=== PATIENT | female | born 1960 | race American Indian/Alaskan Native ===

== ENCOUNTER 2018-09-22 14:09 | Emergency (ER) | payer SELFPAY ==
[2018-09-22] MEDS ORDERED: DECADRON IM ONE (16:44)
--- NOTE | 2018-09-22 16:44 | Emergency Department Report ---
ED Back Pain/Injury HPI - General Chief Complaint: Back Pain/Injury Stated Complaint: HURT LOWER BACK Time Seen by Provider: 09/22/18 16:41 Source: patient Limitations: No Limitations - History of Present Illness Initial Comments: Patient is a 58-year-old -[place] female who comes to the ER after hurting her back while lifting a heavy object. She states that she did not use her leg she bent over and her lower back and twisted as she turned. She has left paraspinal spasm. She is ambulatory but with pain. She has no signs or symptoms of cauda equina. - Related Data Previous Rx's Medication Instructions Recorded Last Taken Type Cyclobenzaprine [Flexeril] 10 mg PO TID PRN #10 tablet 09/22/18 Unknown Rx hydroCHLOROthiazide [HCTZ] 25 mg PO QDAY #30 tablet 09/22/18 Unknown Rx predniSONE [Deltasone] 20 mg PO DAILY #5 tablet 09/22/18 Unknown Rx traMADol [Ultram] 50 mg PO Q6HR PRN #10 tablet 09/22/18 Unknown Rx Allergies Allergy/AdvReac Type Severity Reaction Status Date / Time No Known Allergies Allergy Verified 08/06/15 00:49 ED Review of Systems ROS: Stated complaint: HURT LOWER BACK Other details as noted in HPI Comment: All other systems reviewed and negative Constitutional: denies: chills ENT: denies: throat pain Respiratory: denies: cough Cardiovascular: denies: dyspnea on exertion Endocrine: denies: flushing Genitourinary: denies: urgency Musculoskeletal: as per HPI, back pain Skin: denies: rash Neurological: denies: weakness Psychiatric: denies: depression Hematological/Lymphatic: denies: easy bleeding ED Past Medical Hx - Past Medical History Previous Medical History?: Yes Hx Hypertension: Yes - Surgical History Past Surgical History?: No - Social History Smoking Status: Current Every Day Smoker Substance Use Type: None - Medications Home Medications: Home Medications Medication Instructions Recorded Confirmed Last Taken Type Cyclobenzaprine [Flexeril] 10 mg PO TID PRN #10 tablet 09/22/18 Unknown Rx hydroCHLOROthiazide [HCTZ] 25 mg PO QDAY #30 tablet 09/22/18 Unknown Rx predniSONE [Deltasone] 20 mg PO DAILY #5 tablet 09/22/18 Unknown Rx traMADol [Ultram] 50 mg PO Q6HR PRN #10 tablet 09/22/18 Unknown Rx ED Physical Exam - General Limitations: No Limitations General appearance: alert - Head Head exam: Present: atraumatic - Eye Eye exam: Present: normal appearance - ENT ENT exam: Present: normal exam - Neck Neck exam: Present: normal inspection - Respiratory Respiratory exam: Present: normal lung sounds bilaterally - Cardiovascular Cardiovascular Exam: Present: regular rate - GI/Abdominal GI/Abdominal exam: Present: soft - Rectal Rectal exam: Present: deferred - Extremities Exam Extremities exam: Present: normal inspection, full ROM - Back Exam Back exam: Present: full ROM, muscle spasm (ordered with pain left paraspinal). Absent: CVA tenderness (R), CVA tenderness (L), paraspinal tenderness, vertebral tenderness - Neurological Exam Neurological exam: Present: alert, oriented X3 - Psychiatric Psychiatric exam: Present: normal affect, normal mood - Skin Skin exam: Present: warm, dry, intact ED Course Vital Signs 09/22/18 09/22/18 14:18 17:10 Temperature 98.6 F Pulse Rate 92 H 101 H Respiratory 20 Rate Blood Pressure 156/106 126/83 O2 Sat by Pulse 90 Oximetry ED Medical Decision Making - Medical Decision Making Patient did not fall she has no trauma that would result in a fracture of her vertebrae. She has no previous back injury or history that would make me suspicious for fracture or dislocation. She does not have severe osteoporosis that would lend itself to a pathological fracture. She is neurovascularly intact. She was medicated in the emergency room for pain and discharged with additional medications to alleviate her spasm. She's been given follow-up with orthopedics. Patient states that she ran out of her blood pressure medication months ago and quit taking it. She was taking lisinopril one point but it made her cough. Given her elevated blood pressure I sent her home with hydrochlorothiazide and PCP referral. She was also medicated with clonidine here in the ER. - Differential Diagnosis muscle injury Critical care attestation.: If time is entered above; I have spent that time in minutes in the direct care of this critically ill patient, excluding procedure time. ED Disposition Clinical Impression: Back spasm, HTN (hypertension), Medical non-compliance Disposition: TO HOME OR SELFCARE Is pt being admited?: No Does the pt Need Aspirin: No Condition: Stable Instructions: Hypertension (ED), Muscle Spasm (ED) Additional Instructions: WARM COMPRESSES MEDS ORDERED MOTRIN OR TYLENOL FOR MILD PAIN [employer] FOLLOW UP PCP IF PERSISTS LOW SALT DIET ACTIVITY TOLERATED Prescriptions: Cyclobenzaprine [Flexeril] 10 mg PO TID PRN #10 tablet PRN Reason: Muscle Spasm hydroCHLOROthiazide [HCTZ] 25 mg PO QDAY #30 tablet predniSONE [Deltasone] 20 mg PO DAILY #5 tablet traMADol [Ultram] 50 mg PO Q6HR PRN #10 tablet PRN Reason: Pain Referrals: PRIMARY CAREMD [Primary Care Provider] - 3-5 Days ANN BISHOP MD [Referring] - 3-5 Days Forms: Work/School Release Form(ED) Time of Disposition: 16:45
[2018-09-22] MEDS ORDERED: IBUPROFEN PO ONE (16:45)
[2018-09-22] MEDS ORDERED: CATAPRES PO ONE (16:47)
[2018-09-22 17:10] VITALS: BP 126/83
== END 2018-09-22 17:40 | disposition home or self-care (01) ==
LOC: ED 14:09
DX: M62.830 Muscle spasm of back (principal); I10 Essential (primary) hypertension; F17.200 Nicotine dependence, unspecified, uncomplicated
CPT/HCPCS: 96372; 99282; J1100

== ENCOUNTER 2021-12-25 22:30 | Emergency (ER) | payer SELFPAY ==
[2021-12-25] MEDS ORDERED: LIDOCAINE 2%/EPINEPHRINE 1:100,000 VIAL (20 ML) INFILTRATI ONE (22:43)
[2021-12-25] MEDS ORDERED: OXYMETAZOLINE 0.05% NASAL SPRAY NS ONE (22:43)
--- NOTE | 2021-12-25 22:43 | Emergency Department Report ---
ED General Adult HPI - General Chief complaint: Nosebleed Stated complaint: NOSE BLEED Time Seen by Provider: 12/25/21 22:43 Source: patient, EMS ( EMS documentation not available at time of chart dictation ), RN notes reviewed, old records reviewed Mode of arrival: Ambulatory Limitations: No Limitations - History of Present Illness Initial comments: This patient is a 61-year-old female who is a chronic tobacco user, who presents to the ER today with a complaint of painless nasal bleeding. It started earlier on today. This is happened to her in the past. She denies trauma, nasal picking, cocaine use. She does not use systemic anticoagulation. She endorses no additional injuries or complaints. Her symptoms were resolved in the emergency room with administration of Afrin, direct digital pressure with a tongue depressor device. -: Sudden Consistency: constant, now resolved Improves with: other (As per history of present illness) Associated Symptoms: denies other symptoms - Related Data Previous Rx's Medication Instructions Recorded Last Taken Type hydroCHLOROthiazide [HCTZ] 25 mg PO QDAY #30 tablet 09/22/18 Unknown Rx predniSONE [Deltasone] 20 mg PO DAILY #5 tablet 09/22/18 Unknown Rx Fluticasone [Flonase] 1 spray NS QDAY #1 bottle 12/26/21 Unknown Rx Nicotine Polacrilex [Nicotine Gum] 4 mg BC PRN #1 pack 12/26/21 Unknown Rx Allergies Allergy/AdvReac Type Severity Reaction Status Date / Time aspirin AdvReac Unknown Verified 12/25/21 22:54 ED Review of Systems ROS: Stated complaint: NOSE BLEED Other details as noted in HPI Constitutional: denies: fever Eyes: denies: vision change ENT: epistaxis, congestion Respiratory: denies: cough Cardiovascular: denies: chest pain Gastrointestinal: denies: abdominal pain, melena, hematochezia Hematological/Lymphatic: denies: easy bleeding ED Past Medical Hx - Past Medical History Hx Hypertension: Yes - Social History Smoking Status: Current Every Day Smoker Substance Use Type: None - Medications Home Medications: Home Medications Medication Instructions Recorded Confirmed Last Taken Type hydroCHLOROthiazide [HCTZ] 25 mg PO QDAY #30 tablet 09/22/18 Unknown Rx predniSONE [Deltasone] 20 mg PO DAILY #5 tablet 09/22/18 Unknown Rx Fluticasone [Flonase] 1 spray NS QDAY #1 bottle 12/26/21 Unknown Rx Nicotine Polacrilex [Nicotine Gum] 4 mg BC PRN #1 pack 12/26/21 Unknown Rx ED Physical Exam - General Limitations: No Limitations General appearance: alert, anxious - Head Head exam: Present: atraumatic, normocephalic - Eye Eye exam: Present: normal appearance, EOMI. Absent: nystagmus - ENT ENT exam: Present: normal exam, normal orophraynx, mucous membranes moist, normal external ear exam, other (There is dried blood noted in the right nostril. There is no active bleeding. There is no nasal septal hematoma.) - Neck Neck exam: Present: normal inspection, full ROM. Absent: tenderness, meningismus - Respiratory Respiratory exam: Present: normal lung sounds bilaterally. Absent: respiratory distress, wheezes, rales, rhonchi, stridor, decreased breath sounds - Cardiovascular Cardiovascular Exam: Present: regular rate, normal rhythm, normal heart sounds. Absent: bradycardia, tachycardia, irregular rhythm, systolic murmur, diastolic murmur, rubs, gallop - GI/Abdominal GI/Abdominal exam: Present: soft. Absent: distended, tenderness, guarding, rebound, rigid, pulsatile mass - Extremities Exam Extremities exam: Present: normal inspection, full ROM, other (2+ pulses noted in the bilateral upper and lower extremities. There is no palpable cord. negative Homans sign. Muscular compartments are soft. The pelvis is stable.). Absent: pedal edema, calf tenderness - Back Exam Back exam: Present: normal inspection, full ROM. Absent: tenderness, CVA tenderness (R), CVA tenderness (L), paraspinal tenderness, vertebral tenderness - Neurological Exam Neurological exam: Present: alert, oriented X3, normal gait, other (No facial droop. Tongue midline. Extraocular movements intact bilaterally. Facial sensation intact to light touch in V1, V2, V3 distribution bilaterally. 5 and a 5 strength in 4 extremities. Sensation intact to light touch in 4 extremities.). Absent: motor sensory deficit - Psychiatric Psychiatric exam: Present: normal affect, normal mood - Skin Skin exam: Present: warm, dry, intact, normal color. Absent: rash ED Course Vital Signs 12/25/21 12/25/21 12/25/21 22:51 23:01 23:15 Temperature Pulse Rate 87 88 85 Respiratory 14 21 21 Rate Blood Pressure 108/76 95/63 Blood Pressure 108/76 [Right] O2 Sat by Pulse Oximetry 12/25/21 12/25/21 12/26/21 23:31 23:45 00:01 Temperature Pulse Rate 85 91 H 84 Respiratory 14 22 16 Rate Blood Pressure 93/72 103/69 97/63 Blood Pressure [Right] O2 Sat by Pulse Oximetry 12/26/21 00:09 Temperature 98.0 F Pulse Rate 84 Respiratory 16 Rate Blood Pressure Blood Pressure 104/71 [Right] O2 Sat by Pulse 92 Oximetry ED Medical Decision Making - Lab Data Vital Signs 12/25/21 12/25/21 12/25/21 22:51 23:01 23:15 Temperature Pulse Rate 87 88 85 Respiratory 14 21 21 Rate Blood Pressure 108/76 95/63 Blood Pressure 108/76 [Right] O2 Sat by Pulse Oximetry 12/25/21 12/25/21 12/26/21 23:31 23:45 00:01 Temperature Pulse Rate 85 91 H 84 Respiratory 14 22 16 Rate Blood Pressure 93/72 103/69 97/63 Blood Pressure [Right] O2 Sat by Pulse Oximetry 12/26/21 00:09 Temperature 98.0 F Pulse Rate 84 Respiratory 16 Rate Blood Pressure Blood Pressure 104/71 [Right] O2 Sat by Pulse 92 Oximetry Oxygen saturation reviewed and appreciated. Patient has been hypoxic since 2019. This is most likely secondary to her underlying tobacco use. She has no respiratory complaints or distress at this time - Medical Decision Making Differential diagnosis, including the not limited to: Nasal bleeding, epistaxis, chronic tobacco use, encounter for tobacco cessation Assessment and plan: 61-year-old female, who is a chronic tobacco user and smoker, presenting to the ER with nasal bleeding which is now resolved. Patient is counseled to discontinue tobacco smoking. May be discharged with Afrin, Flonase, tongue depressor device, and nicotine gum. Patient extensively counseled that nasal bleeding may recur, and if it does recur, she is instructed on how to care for it. Patient observed in this ER for hours without clinical decompensation. She is suitable for discharge at this point in time. Return precautions are reviewed. All questions answered Critical care attestation.: If time is entered above; I have spent that time in minutes in the direct care of this critically ill patient, excluding procedure time. ED Disposition Clinical Impression: Epistaxis, Encounter for tobacco use cessation counseling Disposition: HOME / SELF CARE / HOMELESS Is pt being admited?: No Does the pt Need Aspirin: No Condition: Stable Instructions: Steps to Quit Smoking, [id number], Nosebleed, [id number] Additional Instructions: Recommend that patient discontinue tobacco consumption. Long-term use of tobacco and cigarettes is a risk factor for cancer, stroke, heart attack. Nasal bleeding has resolved at this point in time. Tobacco smoking is likely contributing factor. If nasal bleeding reoccurs, please apply Afrin spray in the affected nostril, 1 to 2 sprays, then hold direct digital pressure with the tongue depressor device that has been provided to the patient in the emergency room for about 20 minutes. He should stop the bleeding. If this does not stop the bleeding, please present to the emergency room right away. Afrin may be used once every 12 hours for 3 days. Afrin should not be used for more than 3 days consecutively, and should not be used more often than once every 12 hours. For the next week, do not take Motrin, ibuprofen, Naprosyn, Aleve, or aspirin. Recommend that the patient follow-up with a primary care doctor within the next month. Please return to the emergency room right away with new pain, worsened pain, migration of pain, projectile vomiting, change in mental status, confusion, inability tolerate liquid feeds, new, worsened or different symptoms not present on the initial emergency room evaluation Flonase may be used indefinitely. Patient may also use an [id number] allergy medicine like Zyrtec, in case there is a component of allergies present. Referrals: PRIMARY CARE, [Primary Care Provider] - 3-5 Days [facility] [Provider Group] - 3-5 Days Forms: Work/School Release Form(ED)
[2021-12-26 02:00] VITALS: BP 120/81
== END 2021-12-26 00:57 | disposition home or self-care (01) ==
LOC: ED 22:30
DX: R04.0 Epistaxis (principal); F17.211 Nicotine dependence, cigarettes, in remission; I10 Essential (primary) hypertension; F17.200 Nicotine dependence, unspecified, uncomplicated; Z91.09 Other allergy status, other than to drugs and biological substances
CPT/HCPCS: 99283; J3490